=== PATIENT | female | born 1955 | race Caucasian/White ===

== ENCOUNTER 2021-04-01 09:27 | Emergency (ER) | payer MEDICARE, MEDICAID, SELFPAY ==
--- NOTE | ~2021-04-01 | US_ITS ---
EXAMINATION: US pelvic complete w TV DATE: 04/01/2021 10:26 INDICATION: Postmenopausal bleeding. TECHNIQUE: Multiple transabdominal and transvaginal sonographic images of the pelvis were obtained. COMPARISON: None. FINDINGS: TRANSABDOMINAL ULTRASOUND: There is no free fluid in the pelvis. TRANSVAGINAL ULTRASOUND: The uterus measures 6.0 x 2.9 x 4.2 cm. The endometrial complex measures 4 mm in thickness. The ovari es are not visualized. IMPRESSION: 1. Normal uterus. Reviewed, dictated and finalized at location A. IMPRESSION: 1. Normal uterus.
[2021-04-01 09:26] VITALS: BP 125/59; PULSE 68; RESP 19; TEMP 36.9; O2SAT 100
--- NOTE | 2021-04-01 09:48 | ED.FEMALEGU ---
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 Patient states she has had intermittent vaginal bleeding over the past year. She states she has never been evaluated for this, no history of pelvic ultrasound or work-up. She denies weight loss, abdominal pain or bloating. At times the bleeding is very light but over the past 2 weeks she has been passing heavy clots and using 3-4 pads per day. No brisk bleeding. No lightheadedness, dizziness, syncope or palpitations. No dark or tarry stool. Patient denies history of cancer in self. She denies night sweats. Related Data Allergies Allergy/AdvReac Type Severity Reaction Status Date / Time bacitracin Allergy Swelling Verified 04/01/21 09:34 [From Neosporin ([id number])] neomycin Allergy Swelling Verified 04/01/21 09:34 [From Neosporin ([id number])] polymyxin B Allergy Swelling Verified 04/01/21 09:34 [From Neosporin ([id number])] Review of Systems Review of Systems: Narrative: CONSTITUTIONAL: Denies fever, chills, or sweats. EYES: Denies visual changes, redness, or discharge. ENT: Denies rhinorrhea, congestion, sore throat, or otalgia. CARDIOVASCULAR: Denies chest pain, palpitations, or edema. RESPIRATORY: Denies cough or dyspnea. GASTROINTESTINAL: Denies abdominal pain, nausea, vomiting, or diarrhea. GENITOURINARY: Denies dysuria or hematuria. Reports vaginal bleeding. SKIN: Denies rash or itching. MUSCULOSKELETAL: Denies back pain, joint pain, or myalgia. NEUROLOGIC: Denies headache, numbness, or weakness. [facility] Social History Social History (Updated 04/01/21 @ 09:50 by Edwige Pringle MD) Smoking status: Current every day smoker Alcohol intake: never Substance use: never Living arrangements: assisted living Gender identity (if verbalized by the patient): Female Exam Narrative: Exam Narrative: GENERAL: Awake, alert, conversant HEAD: Normocephalic, atraumatic. EYES: PERRLA and EOMI. ENT: Nares clear, no rhinorrhea or epistaxis. Mucous membranes moist. NECK: Supple. CHEST: No respiratory distress, breathing even and non labored HEART: Regular rate, sinus rhythm ABDOMEN:Non distended, non tender : Cervix is closed. There is scant bleeding from the os, no large blood clots. No brisk bleeding. No cervical tenderness. No vesicles or lesions. No masses identified. EXTREMITIES: Normal range of motion. No edema. SKIN: Warm, dry, no rash. NEURO:No focal deficits. Alert and oriented x3 Course Vital Signs Vital signs: Vital Signs Temperature 36.9 C 04/01/21 09:26 Pulse Rate 68 04/01/21 09:26 Respiratory Rate 19 04/01/21 09:26 Blood Pressure 125/59 L 04/01/21 09:26 Pulse Oximetry 100 04/01/21 09:26 Temperature 36.9 C 04/01/21 09:26 Pulse Rate 74 04/01/21 12:09 Respiratory Rate 18 04/01/21 12:09 Blood Pressure 121/63 04/01/21 12:09 Pulse Oximetry 100 04/01/21 12:09 MDM - Female Genitourinary MDM Narrative Medical decision making narrative: Patient is presenting for evaluation of abnormal uterine bleeding. This has been longstanding for the patient. At the time of assessment, ABCs are intact and vital signs are stable. No significant pain on exam. Patient with evidence of scant bleeding without brisk bleeding or large blood clots. No evidence of infection. No urinary symptoms thus swabs were not obtained. Laboratory results are reassuring. Very mild anemia. No significant anemia that would require transfusion. Patient is not hemodynamically unstable she is not even symptomatic from her vaginal bleeding. Obtain a pelvic ultrasound to rule out any neoplastic pathology, patient
[2021-04-01 10:51] LABS: Basophils Absolute Auto 0.1 K/mm3 (0.0-0.1); Basophils Percent Auto 0.7 % (0.2-1.2); Eosinophils Absolute Auto 0.1 K/mm3 (0-0.3); Eosinophils Percent Auto 1.6 % (0-4.4); Hematocrit 35.5 % (37.0-47.0); Hemoglobin 11.3 g/dL (12.0-15.0); Immature Granulocyte Absolute 0.02 K/mm3 (0.00-0.031); Immature Granulocyte Percent A 0.3 % (0-0.5); Lymphocytes Absolute Auto 1.85 K/mm3 (0.9-3.2); Lymphocytes Percent Auto 26.7 % (18.3-44.2); Mean Corpuscular HGB Conc 31.8 g/dl (32-36); Mean Corpuscular Hemoglobin 29.5 pg (26-34); Mean Corpuscular Volume 92.7 fl (80-100); Mean Platelet Volume 9.4 fl (7.4-10.4); Monocytes Absolute Auto 0.9 K/mm3 (0.1-0.6); Monocytes Percent Auto 12.7 % (2.6-8.5); Platelet Count Result 243 k/mm3 (150-375); Red Blood Count 3.83 M/mm3 (4.2-5.4); Red Cell Distribution Width 15.7 % (11.5-14.5); White Blood Count 6.9 K/mm3 (4.5-10.0)
[2021-04-01 11:02] LABS: Anion Gap 7 mmol/L (8-16); Blood Urea Nitrogen 27 mg/dL (7-17); Calcium 9.1 mg/dL (8.4-10.2); Carbon Dioxide 25 mmol/L (22-30); Chloride 108 mmol/L (98-107); Estimated CRCL calculation 55 ml/min; Estimated Glomerular Filt Rate > 60; Glucose 93 mg/dL (65-105); Potassium 4.3 mmol/L (3.4-5.0); Sodium 140 mmol/L (137-145)
--- NOTE | 2021-04-01 11:07 | PC.NURSE ---
unable to provide urine sample, states went in u/s, gives consent for straight cath - ordered
[2021-04-01 11:15] LABS: INR 0.9; Prothrombin Time 12.6 Seconds (11.1-14.7)
[2021-04-01 12:03] LABS: Add Urine Microscopic? YES; Appearance Urine Clear (Clear); Bilirubin Urine Negative (Negative); Blood Urine Negative (Negative); Color Urine Straw (Yellow); Glucose Urine UA Negative (Negative); Ketones Urine Negative (Negative); Leukocyte Esterase Ur Negative LEU/UL (Negative); Nitrate Urine Negative (Negative); Protein Urine Negative (Negative); RBC Urine 0-2 /hpf (0-2); Specific Grav Ur 1.013 (1.001-1.035); Squamous Epithelial Cell Urine Rare /hpf (Few); Urobilinogen Urine Negative mg/dL (<2.0); WBC Urine 0-3 /hpf
[2021-04-01 12:09] VITALS: BP 121/63; PULSE 74; RESP 18; O2SAT 100
--- NOTE | 2021-04-01 13:50 | PC.NURSE ---
Called [facility] and gave report to Cathie GODDARD, will call back and let this RN know of ride avail to transport pt back to [place].
[2021-04-01 13:53] VITALS: BP 132/58; PULSE 89; RESP 15; O2SAT 98
== END 2021-04-01 13:56 ==
PROVIDERS: Emergency Provider Emergency Medicine; PCP Internal Medicine
DX: N93.9 Abnormal uterine and vaginal bleeding, unspecified (principal); F17.200 Nicotine dependence, unspecified, uncomplicated
CPT/HCPCS: 36415; 51701; 76830; 76856; 80048; 81001; 85025; 85610; 86850; 86900; 86901; 99284

== ENCOUNTER 2021-11-23 20:33 | Emergency (ER) | payer MEDICARE, MEDICAID, SELFPAY ==
--- NOTE | ~2021-11-23 | CT_ITS ---
EXAMINATION: CT hip LT wo con DATE: 11/24/2021 00:03 INDICATION: Left hip pain. Fall. TECHNIQUE: Computed tomography (CT) of the left hip was performed without intravenous contrast. Autom ated exposure control and iterative reconstruction technique were employed. The dose-length product w as 111.59 mGy-cm. COMPARISON: Pelvis and left hip radiographs 11/23/2021 FINDINGS: There is extensive erosions of left acetabulum and left femoral head. There is a T-type fra cture of left acetabulum. There is a large left hip joint effusion with partially visualized extensio n into the left psoas muscle. IMPRESSION: 1. Extensive erosions of left femoral head and left acetabulum with large left hip joint effusion ext ending into the iliopsoas muscle, consistent with septic arthritis versus inflammatory arthritis. 2. Pathologic T-type fracture of left acetabulum. Reviewed, dictated and finalized at location A. LAY DECORATOR IMPRESSION: 1. Extensive erosions of left femoral head and left acetabulum with large left hip joint effusion extending into the iliopsoas muscle, consistent with septic arthritis versus inflammatory arthritis. 2. Pathologic T-type fracture of left acetabulum.
--- NOTE | ~2021-11-23 | XR_ITS ---
EXAMINATION: XR hip LT 2V w AP pelvis DATE: 11/23/2021 21:36 INDICATION: Left hip pain. TECHNIQUE: An anteroposterior view of the pelvis and 2 views of left hip were obtained. COMPARISON: Pelvis and left hip radiographs 11/22/2015, left hip CT 11/23/2021 FINDINGS: There is internal fixation of proximal right femur with antegrade intramedullary savita and fe moral head/neck screws. There is mild right hip osteoarthritis. There are extensive erosions of left acetabulum and left femoral head. There is a T-type fracture of left acetabulum. There is moderate ander mbar spondylosis. IMPRESSION: 1. T-type fracture of left acetabulum. 2. Extensive erosions of left femoral head and left acetabulum, consistent with septic versus inflamm atory arthritis. 3. Mild right hip osteoarthritis. Reviewed, dictated and finalized at location A. ORK DIRECTOR IMPRESSION: 1. T-type fracture of left acetabulum. 2. Extensive erosions of left femoral head and left acetabulum, consistent with septic versus inflammatory arthritis. 3. Mild right hip osteoarthritis.
[2021-11-23 20:44] VITALS: BP 139/69; PULSE 94; RESP 14; TEMP 36.9; O2SAT 99
--- NOTE | 2021-11-23 22:22 | ED.LOWEXIN ---
HPI - Extremity Injury (Lower) General Chief Complaint: Extremity Injury, Lower <Awa Bowles MD - Last Filed: 11/23/21 23:54> Stated Complaint: Left hip pain w/ Fx <Awa Bowles MD - Last Filed: 11/23/21 23:54> Time Seen by Provider: 11/23/21 22:13 <Awa Bowles MD - Last Filed: 11/23/21 23:54> Source: patient and RN notes reviewed <Awa Bowles MD - Last Filed: 11/23/21 23:54> Mode of arrival: EMS <Awa Bowles MD - Last Filed: 11/23/21 23:54> Limitations: no limitations <Awa Bowles MD - Last Filed: 11/23/21 23:54> History of Present Illness HPI Narrative: Patient is 65 years old white female brought to the emergency room by ambulance because of left buttock pain after a fall 4 days ago. Patient tripped and fell, denies other injuries. Pain started getting worse 2 days ago. Patient did take [id number]-[id number] medication without improvement. Patient denies any fever, chills, nausea, vomiting, abdominal pain, back pain, shortness of breath or chest pain <Awa Bowles MD - Last Filed: 11/23/21 23:54> Related Data Allergies/Adverse Reactions: Allergies Allergy/AdvReac Type Severity Reaction Status Date / Time bacitracin Allergy Swelling Verified 04/01/21 09:34 [From Neosporin ([id number])] neomycin Allergy Swelling Verified 04/01/21 09:34 [From Neosporin ([id number])] polymyxin B Allergy Swelling Verified 04/01/21 09:34 [From Neosporin ([id number])] <Awa Bowles MD - Last Filed: 11/23/21 23:54> Review of Systems Review of Systems: CONSTITUTIONAL: Denies fever, chills, or sweats. EYES: Denies visual changes, redness, or discharge. ENT: Denies rhinorrhea, congestion, sore throat, or otalgia. CARDIOVASCULAR: Denies chest pain, palpitations, or edema. RESPIRATORY: Denies cough or dyspnea. GASTROINTESTINAL: Denies abdominal pain, nausea, vomiting, or diarrhea. GENITOURINARY: Denies dysuria or hematuria. SKIN: Denies rash or itching. MUSCULOSKELETAL: Denies back pain, joint pain, or myalgia. NEUROLOGIC: Denies headache, numbness, or weakness. PSYCHIATRIC: Denies anxiety or depression. <Awa Bowles MD - Last Filed: 11/23/21 23:54> PMFSH Social History Social History: Social History Smoking status: Current every day smoker Alcohol intake: never Substance use: never Gender identity (if verbalized by the patient): Female <Awa Bowles MD - Last Filed: 11/23/21 23:54> Exam Narrative: General appearance: Well-developed, well-nourished Skin: Normal color Head: Normocephalic, nontraumatic Eyes: Clear conjunctiva ENT: Oropharynx normal, ears normal, nose normal Neck: Supple, nontender Chest and respiratory: Airway patent, no respiratory distress, no accessory muscle use Heart: Regular rate/rhythm Abdomen: Soft, nontender, no organomegaly, quiet bowel sounds Vascular: Normal peripheral pulses, normal capillary refill. Musculoskeletal: Diffuse tenderness left buttock and left hip area, slight limited range of motion. No bruises, no deformity, no swelling or rash Neurologic: Alert and oriented ?3, MEDTRONICS TECHNICIAN is normal as tested, no gross motor deficit <Awa Bowles MD - Last Filed: 11/23/21 23:54> Course Course Emergency Course: Stable <Awa Bowles MD - Last Filed: 11/23/21 23:54> The imaging showed a acetabulum fracture with a disintegrated femoral head. The case was discussed with our local orthopedic surgeon who recommended speaking to [facility] the patient is seen [facility] before when the [facility] transfer center was contacted it was found out that the patient
[2021-11-23] MEDS: HYDROcodone/acetaminophen (*CRX) 5-325 MG TABLET 1 TAB PO (22:34)
[2021-11-23] MEDS: IBUPROFEN 600 MG TABLET PO (22:35)
--- NOTE | 2021-11-24 01:20 | PC.NURSE ---
Per EMS, pt called for them d/t pain in Left hip, s/p fall 3 days ago. Known left hip fx, but has not f/u c ortho. Was seen [facility] for problem and d/c home. Pt reports to this RN that she has not made her ortho f/u appt. as of this time, but will do so 1st thing on Thursday am. ED MD notified, and in t speak to pt. After that, ED MD reports that pt was instead seen for her RIGHT hip problems. ED MD currently on phone with doctor at [facility], attempting to find out what pt was seen for.
[2021-11-24 01:27] VITALS: BP 149/89; PULSE 90; RESP 18; TEMP 36.1; O2SAT 98
== END 2021-11-24 01:37 | disposition home or self-care (01) ==
PROVIDERS: Emergency Provider Emergency Medicine; PCP Internal Medicine
DX: S32.492A Other specified fracture of left acetabulum, initial encounter for closed fracture (principal); M16.11 Unilateral primary osteoarthritis, right hip; M85.852 Other specified disorders of bone density and structure, left thigh; F17.200 Nicotine dependence, unspecified, uncomplicated; W01.0XXA Fall on same level from slipping, tripping and stumbling without subsequent striking against object, initial encounter
CPT/HCPCS: 73502; 73700; 99284; A9270

== ENCOUNTER 2023-09-10 16:28 | Inpatient (IN) | payer MEDICARE, MEDICAID, SELFPAY ==
--- NOTE | ~2023-09-10 | XR_ITS ---
EXAMINATION: XR pelvis 1-2V DATE: 09/15/2023 12:37 INDICATION: Pelvis pain. TECHNIQUE: An anteroposterior view of the pelvis was obtained. COMPARISON: Pelvis radiograph 11/23/2021 FINDINGS: There is chronic dislocation of left hip with absence of the femoral head and neck. There i s chronic enlargement of the left acetabulum. There is an old healed fracture of left inferior pubic ramus. There is internal fixation of right femur with antegrade intramedullary savita and 2 femoral head /neck screws. No acute fracture. There is mild right hip osteoarthritis. There is moderate lumbar spo ndylosis. IMPRESSION: 1. Mild right hip osteoarthritis. 2. Chronic dislocation of left hip with absence of the left femoral head and neck. Reviewed, dictated and finalized at location E. LY COACH IMPRESSION: 1. Mild right hip osteoarthritis. 2. Chronic dislocation of left hip with absence of the left femoral head and ne ck.
--- NOTE | ~2023-09-10 | XR_ITS ---
EXAMINATION: XR foot LT min 3V DATE: 09/11/2023 10:10 INDICATION: Left heel fracture. TECHNIQUE: 3 views of left foot were obtained. COMPARISON: None. FINDINGS: There is a comminuted fracture of calcaneus with involvement of the subtalar joint and ante rior process. Boehler's angle is 22 degrees, which is mildly decreased. There is mild osteoarthritis of first metatarsophalangeal joint. Splint material obscures fine bone detail. IMPRESSION: 1. Comminuted fracture of calcaneus. Reviewed, dictated and finalized at location A. CHBOARD INSPECTOR
--- NOTE | ~2023-09-10 | XR_ITS ---
EXAMINATION: XR wrist LT 2V DATE: 09/15/2023 09:17 INDICATION: Distal left radius fracture. TECHNIQUE: 2 views of left wrist were obtained. COMPARISON: Left wrist radiographs 09/10/2023 FINDINGS: There is a comminuted fracture of distal radial metaphysis. The main distal fracture fragme nt demonstrates impaction, one cortical width dorsal displacement, and dorsal angulation. There is 26 degrees dorsal tilt of the distal articular surface. There is an avulsion fracture of the ulnar styl oid. There is severe osteoarthritis of first carpometacarpal joint. IMPRESSION: 1. Comminuted fracture of distal radius. 2. Avulsion fracture of the ulnar styloid. Reviewed, dictated and finalized at location E. E TRANSITIONAL
--- NOTE | ~2023-09-10 | XR_ITS ---
XR wrist LT min 3V DATE: 09/10/2023 17:43 INDICATION: Pain and swelling of left wrist after fall TECHNIQUE: 3 views COMPARISON: None FINDINGS: There is an approximately 2 mm dorsally displaced mildly comminuted distal radial fracture with mild apex anterior angulation and mild dorsal inclination of distal radial articular surface. Transverse fracture at the base of the ulnar styloid process with mild distal displacement. Radiocarpal alignment is preserved. Prominent osteophytic change at the first carpometacarpal joint. IMPRESSION: Distal radial metaphyseal and ulnar side process fractures Reviewed, dictated and finalized at location L. RAPHIC INFORMATION SYSTEM ANALYST
--- NOTE | ~2023-09-10 | XR_ITS ---
EXAMINATION: XR chest 1V portable DATE: 09/10/2023 20:20 INDICATION: Cough and COPD TECHNIQUE: frontal view of the chest was obtained. COMPARISON: Chest radiograph dated 04/12/2007 FINDINGS: The lungs remain clear with no focal airspace opacities, pulmonary edema, pleural effusion or pneumot horax. The cardiomediastinal silhouette is normal. Cholecystectomy clips in right upper quadrant. Mil d scattered degenerative skeletal changes. IMPRESSION: 1. No acute cardiopulmonary disease. Reviewed, dictated and finalized at location A. NOLOGY PROGRAM MANAGER
[2023-09-10 16:38] VITALS: BP 151/67; PULSE 82; RESP 16; TEMP 36.3; O2SAT 100
[2023-09-10 18:11] VITALS: BP 126/83; PULSE 80; RESP 16; O2SAT 96
--- NOTE | 2023-09-10 19:21 | PC.NURSE ---
This RN assumed care of patient. This RN took patient report from NITZA Mccollum.
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
--- NOTE | 2023-09-10 20:11 | ECG_ITS ---
Measurements Intervals [place] Rate: 74 P: 53 MI: 130 QRS: 10 QRSD: 105 T: 51 QT: 392 QTc: 436 Interpretive Statements SINUS RHYTHM VOLTAGE CRITERIA FOR LVH ANTEROSEPTAL INFARCT, AGE INDETERMINATE BASELINE ARTIFACT- I, II, III, AVR, AVL ABNORMAL ECG NO PREVIOUS ECG AVAILABLE FOR COMPARISON Electronically Signed On 09-11-2023 5:51:52 RESIDENTIAL TREATMENT COUNSELOR by [place] D.O.
--- NOTE | 2023-09-10 20:11 | PM.IMHP ---
H&P: HPI History of Present Illness Date/Time: 09/10/23 20:11 Chief Complaint: fall Narrative: This is a 67-year-old female with past medical history significant for tobacco dependence, patient recently had fracture to her left heel has been on a brace and using crutches at home however had a fall landing in her out stretch hand which caused a wrist fracture patient now presents due to being unable to care for self at home. Patient denies any loss of consciousness, fevers, rigors, chills, nausea, vomiting, shortness of breath, chest pain, dizziness, lightheadedness. Patient has been admitted for further evaluation management and treatment. XR wrist LT min 3V DATE: 09/10/2023 17:43 INDICATION: Pain and swelling of left wrist after fall? TECHNIQUE: 3 views? COMPARISON: None? FINDINGS: There is an approximately 2 mm dorsally displaced mildly comminuted distal radial fracture with mild apex anterior angulation and mild dorsal inclination of distal radial articular surface. Transverse fracture at the base of the ulnar styloid process with mild distal displacement. Radiocarpal alignment is preserved. Prominent osteophytic change at the first carpometacarpal joint.? IMPRESSION: Distal radial metaphyseal and ulnar side process fractures? EXAMINATION: XR chest 1V portable DATE: 09/10/2023 20:20 INDICATION: Cough and COPD TECHNIQUE: frontal view of the chest was obtained. COMPARISON: Chest radiograph dated 04/12/2007 FINDINGS: The lungs remain clear with no focal airspace opacities, pulmonary edema, pleural effusion or pneumothorax. The cardiomediastinal silhouette is normal. Cholecystectomy clips in right upper quadrant. Mild scattered degenerative skeletal changes. IMPRESSION: 1. No acute cardiopulmonary disease. Review of Systems Review of Systems: fall, unable to care for self at home Constitutional: Constitutional: Denies body ache(s), Denies chills, Denies fatigue, Denies fever(s), Denies malaise, Denies poor appetite and Denies weakness Eyes: Eyes: Denies change in vision ENT: Denies dysphagia, Denies vertigo, Denies dizziness and Denies odynophagia Cardiovascular: Cardiovascular: Denies chest pain, Denies irregular heart rhythm, Denies leg edema, Denies lightheadedness, Denies radiating jaw, neck or arm pain and Denies palpitations Respiratory: Respiratory: Denies chest congestion, Denies cough, Denies excessive phlegm production, Denies dyspnea and Denies wheezing Gastrointestinal: Gastrointestinal: Denies abdominal pain, Denies dyspepsia, Denies heartburn, Denies diarrhea, Denies nausea and Denies vomiting Genitourinary: Genitourinary: Denies dysuria Musculoskeletal: Musculoskeletal: Reports arthralgias (wrist ) Comments: L wrist Integumentary/Breasts: Skin/Breast: Denies rash Neurologic: Denies focal weakness and Denies Sensory deficit (Neuro) Psychiatric: Psychiatric: Reports no additional psychiatric complaints and Reports as per HPI Endocrine: Endocrine: Denies cold intolerance, Denies flushing, Denies heat intolerance, Denies polyphagia, Denies polydipsia and Denies palpitations Hematologic/Lymphatic: Hematologic/Lymphatic: Reports no additional hematologic/lymphatic complaints and Reports as per HPI Allergic/Immunologic: Allergic/Immunologic: Reports no additional allergic/immunologic complaints and Reports as per HPI PMFSH Social History Social History Smoking packs per day: 0.5 Smoking cigarettes per day: 10.0 Smoking status: Current every day smoker Tobacco type: cigarettes Alcohol intake: never Substance use: current Substance use type: marijuana Last use: 09/08/2023 Lack of Transportation: No Lack of Food: Never True Current Housing: I Have Housing Concerned About Future Housing: No Difficulty Paying Gas/Electric Bills: No Difficulty Paying for Meds: No Currently Unemployed: No Edu
[2023-09-10] MEDS: HYDROcodone/acetaminophen (*CRX) 5-325 MG TABLET 1 TAB PO (20:18)
--- NOTE | 2023-09-10 21:00 | PC.NURSE ---
This RN along with several RN's attempted to start an IV 10x on patient. Pt declined more attempts. This RN spoke with hospitalist Dr. Posey who stated pt could be admitted without IV access. This RN called [facility] for blood draw, who stated they are busy at the moment but could try when pt is admitted to floor.
[2023-09-10 21:33] VITALS: BP 163/65; PULSE 76; RESP 17; TEMP 36.6; O2SAT 100; BMI 19.5
--- NOTE | 2023-09-10 22:04 | ADMGEN ---
This patient, Mi Hassan, was admitted to Medical Room 245-. Patient/family oriented to hospital policies and general routines including ID bracelet, bed and alarms, visiting hours, pain management, procedures, bathroom and other care routines, personal items, smoking policy, room service/diet, and visiting hours. Information on how to activate the Rapid Response Team has been discussed. Patient/Family are encouraged to report perceived risks to care and to ask questions if they do not understand what they are told or what they should do.
--- NOTE | 2023-09-10 22:25 | PC.NURSE ---
PT STATES SINCE SHE LEFT THE [facility] 2022 SHE HAS NOT SEEN A DOCTOR AND HAS NOT TAKEN ANY MEDICINES
[2023-09-10 22:49] LABS: Basophils Absolute Auto 0.1 K/mm3 (0.0-0.1); Eosinophils Absolute Auto 0.2 K/mm3 (0-0.3); Eosinophils Percent Auto 2.6 % (0-4.4); Hematocrit 38.7 % (37.0-47.0); Immature Granulocyte Absolute 0.01 K/mm3 (0.00-0.031); Immature Granulocyte Percent A 0.2 % (0-0.5); Lymphocytes Absolute Auto 1.49 K/mm3 (0.9-3.2); Mean Corpuscular Hemoglobin 30.6 pg (26-34); Mean Corpuscular Volume 98.7 fl (80-100); Monocytes Absolute Auto 0.7 K/mm3 (0.1-0.6); Monocytes Percent Auto 10.5 % (2.6-8.5); Neutrophils Absolute Auto 3.9 K/mm3 (1.3-6.7); Neutrophils Percent Auto 61.7 % (45.5-73.1); Platelet Count Result 221 k/mm3 (150-375); Red Blood Count 3.92 M/mm3 (4.2-5.4); White Blood Count 6.2 K/mm3 (4.5-10.0)
[2023-09-10 22:59] LABS: Anion Gap 11 mmol/L (8-16); Blood Urea Nitrogen 17 mg/dL (7-17); Calcium 8.8 mg/dL (8.4-10.2); Carbon Dioxide 24 mmol/L (22-30); Chloride 102 mmol/L (98-107); Estimated CRCL calculation 72 ml/min; Estimated Glomerular Filt Rate > 60; Glucose 91 mg/dL (65-110); Potassium 3.3 mmol/L (3.4-5.0); Sodium 137 mmol/L (137-145)
[2023-09-11] MEDS: HYDROcodone/acetaminophen (*CRX) 5-325 MG TABLET 1 TAB PO ×6 (00:20→21:48)
[2023-09-11 04:21] VITALS: PULSE 76; RESP 17; O2SAT 100
[2023-09-11 05:20] VITALS: BP 158/52; PULSE 75; RESP 17; TEMP 36.8; O2SAT 96
--- NOTE | 2023-09-11 07:47 | PCPTNOTE ---
Pt will need ortho consult prior to therapy evaluations.
[2023-09-11 08:46] LABS: Hematocrit 38.9 % (37.0-47.0); Hemoglobin 12.3 g/dL (12.0-15.0); Mean Corpuscular HGB Conc 31.6 g/dl (32-36); Mean Corpuscular Hemoglobin 30.4 pg (26-34); Mean Corpuscular Volume 96.3 fl (80-100); Mean Platelet Volume 9.8 fl (7.4-10.4); Platelet Count Result 232 k/mm3 (150-375); Red Blood Count 4.04 M/mm3 (4.2-5.4)
[2023-09-11 09:07] LABS: Alanine Aminotransferase 16 U/L (6-35); Albumin Level 3.6 g/dL (3.5-5.1); Alkaline Phosphatase 107 U/L (38-126); Anion Gap 9 mmol/L (8-16); Aspartate Amino Transferase 24 U/L (14-36); Bilirubin,Total 0.5 mg/dL (0.2-1.3); Blood Urea Nitrogen 18 mg/dL (7-17); Calcium 8.6 mg/dL (8.4-10.2); Carbon Dioxide 27 mmol/L (22-30); Chloride 103 mmol/L (98-107); Estimated CRCL calculation 61 ml/min; Estimated Glomerular Filt Rate > 60; Glucose 128 mg/dL (65-110); Sodium 139 mmol/L (137-145)
[2023-09-11] MEDS: NICOTINE (*PBKC) 14 MG PATCH 1 PATCH TRANSDERM (09:26)
[2023-09-11] MEDS: polyethylene glycoL 3350 17 GM POWD.PACK PO (09:26)
[2023-09-11] MEDS: POTASSIUM CHLORIDE 20 MEQ ER TABLET PO (09:29)
--- NOTE | 2023-09-11 09:35 | PM.CNOR ---
Assessment and Plan Assessment and plan (1) Distal radial fracture: Qualifiers: Encounter type: initial encounter Fracture morphology: unspecified fracture morphology Fracture type: closed Laterality: left Qualified Code(s): S52.502A - Unspecified fracture of the lower end of left radius, initial encounter for closed fracture Code(s): S52.509A - Unspecified fracture of the lower end of unspecified radius, initial encounter for closed fracture Status: Acute Assessment and Plan: Radiographs of the left wrist reveal distal radial metaphyseal and ulnar side process fractures. The fracture type and injury as well as radiographs discussed with the patient and family. Operative and nonoperative treatment options reviewed. The patient is currently hesitant to proceed with surgical intervention with ORIF of the left wrist. Risk of nonunion, malunion or late displacement discussed. Stiffness, pain and possible dysfunction of the joint discussed. Fracture precautions and activity restrictions reviewed. The patient verbalizes understanding. She may benefit from ORIF of the left wrist given inability to bear weight on the LLE as well with the calcaneus fx. This would at least allow her to utilize the left wrist more effectively. Will defer decision to Dr. Hinkle pending further discussion with the patient. Continue splint in the interim. Ice, elevate. Pain control. Monitor [place] status. Dispo: SNF vs. Home. Patient is not currently agreeable to SNF at discharge. Appreciate CC consult. (2) Tobacco dependence: Code(s): F17.200 - Nicotine dependence, unspecified, uncomplicated Status: Acute (3) Calcaneal fracture: Qualifiers: Encounter type: initial encounter Calcaneus location: unspecified portion of calcaneus Fracture type: closed Fracture alignment: nondisplaced Laterality: left Qualified Code(s): S92.002A - Unspecified fracture of left calcaneus, initial encounter for closed fracture Code(s): S92.009A - Unspecified fracture of unspecified calcaneus, initial encounter for closed fracture Status: Acute Assessment and Plan: New radiographs of the left foot obtained to further evaluate calcaneus fracture. Radiographs of the left foot reveal a comminuted fracture of the calcaneus with involvement of the subtalar joint and anterior process. Boehler's angle is 22 degrees which is mildly decreased. Splint material in place. Reviewed radiographs with attending MD, Dr. Hinkle who recommends continued conservative treatment at this time. Recommended keeping current splint in place. Ice, elevate. Offload heel for skin protection. PT/OT consult. NWB of the LLE. Pain control. Given no current follow up plans with [facility], we will continue to follow her heel fracture as an outpatient. Patient would benefit from transitioning from crutches to a walker with forearm splint pending decision regarding her wrist. (4) No pertinent past surgical history: Code(s): Z78.9 - Other specified health status Status: Acute (5) Arthritis: Code(s): M19.90 - Unspecified osteoarthritis, unspecified site Status: Acute (6) Left ulnar fracture: Qualifiers: Encounter type: initial encounter Fracture alignment: displaced Fracture type: closed Ulna location: styloid process Qualified Code(s): S52.612A - Displaced fracture of left ulna styloid process, initial encounter for closed fracture Code(s): S52.202A - Unspecified fracture of shaft of left ulna, initial encounter for closed fracture Status: Acute (7) Hypertension: Code(s): I10 - Essential (primary) hypertension Status: Acute History of Present Illness HPI Consult date: 09/11/23 Consult reason: fracture Chief complaint: Radial and Ulner Fracture Narrative: 67 year old female presented to the ER after a fall. Per patient and review of medical records, the fall occurred two days pr
--- NOTE | 2023-09-11 10:33 | PM.IMPN ---
Progress Note: A&P Assessment and Plan (1) Distal radial fracture: Qualifiers: Encounter type: initial encounter Fracture morphology: unspecified fracture morphology Fracture type: closed Laterality: left Qualified Code(s): S52.502A - Unspecified fracture of the lower end of left radius, initial encounter for closed fracture Code(s): S52.509A - Unspecified fracture of the lower end of unspecified radius, initial encounter for closed fracture Status: Acute Assessment and Plan: X-ray with left distal radial metaphyseal and ulnar side process fractures. Orthopedic consulted. Analgesics p.r.n.. PT and OT per Orthopedic recommendations. (2) Left ulnar fracture: Qualifiers: Encounter type: initial encounter Fracture alignment: displaced Fracture type: closed Ulna location: styloid process Qualified Code(s): S52.612A - Displaced fracture of left ulna styloid process, initial encounter for closed fracture Code(s): S52.202A - Unspecified fracture of shaft of left ulna, initial encounter for closed fracture Status: Acute Assessment and Plan: As above (3) Closed fracture of left hip: Qualifiers: Encounter type: subsequent encounter Fracture healing: with nonunion Qualified Code(s): S72.002K - Fracture of unspecified part of neck of left femur, subsequent encounter for closed fracture with nonunion Code(s): S72.002A - Fracture of unspecified part of neck of left femur, initial encounter for closed fracture Status: Acute Assessment and Plan: Non operative management at this time. (4) Calcaneal fracture: Code(s): S92.009A - Unspecified fracture of unspecified calcaneus, initial encounter for closed fracture Status: Acute Assessment and Plan: Orthopedics consulted. (5) Hypertension: Code(s): I10 - Essential (primary) hypertension Status: Acute Assessment and Plan: Patient states that she used to live at [place] but no longer lives there due to being kicked out. Patient does not know any of her home medications. Will monitor her blood pressure. (6) Tobacco dependence: Code(s): F17.200 - Nicotine dependence, unspecified, uncomplicated Status: Acute Assessment and Plan: Nicotine patch Plan Patient states that she is crashing at a friend's house for right now. She does not want any placement at this time. Discussed with her that it would be in her best interest to get rehab due to the multiple fractures that she has. She does not care and wants to be discharged home. Will wait for further recommendations from Orthopedics as far as surgery goes. Subjective Date/time seen: 09/11/23 10:33 Interval history: Patient states that she is crashing at a friend's house for right now. She does not want any placement at this time. Discussed with her that it would be in her best interest to get rehab due to the multiple fractures that she has. She does not care and wants to be discharged home. Will wait for further recommendations from Orthopedics as far as surgery goes. she denies any pain at this time. She typically walks with a walker but has been on crutches since she broke her heel. She claims that she has fallen multiple times due to the inability to use crutches. Her story changes each time she is asked about her fractures. She has poor historian. Exam Narrative: GENERAL: Comfortable, no acute distress HENMT: moist mucous membranes EYES: EOM intact b/l NECK: no lymphadenopathy RESPIRATORY: clear to auscultation CARDIO: RRR GI: soft, nontender, bowel sounds present SKIN: no rashes EXTREMITIES: left foot and left arm splinting Objective Data Vital Signs Vital Signs: Vital Signs - 24 hr 09/10/23 16:38 09/10/23 18:11 09/10/23 21:33 Temperature 97.3 F L 97.9 F Pulse Rate 82 80 76 Respiratory Rate 16
--- NOTE | 2023-09-11 12:55 | PC.NURSE ---
Patient refused to obtain IV access after two attempts. Provider aware and okay with no IV access.
[2023-09-11 14:00] VITALS: BP 164/68; PULSE 73; RESP 13; TEMP 36.6; O2SAT 92
[2023-09-11] MEDS: POTASSIUM CHLORIDE 20 MEQ PACKET (FOR LIQUID) 60 MEQ PO (17:24)
[2023-09-11 19:31] LABS: Potassium 4.5 mmol/L (3.4-5.0)
[2023-09-11 19:39] VITALS: BP 157/68; PULSE 64; RESP 15; TEMP 36.9; O2SAT 99
--- NOTE | 2023-09-12 01:37 | PC.NURSE ---
Pt found using vape device in room, pt educated on hospital policy and device locked inside patient locker.
[2023-09-12] MEDS: HYDROcodone/acetaminophen (*CRX) 5-325 MG TABLET 1 TAB PO ×6 (01:54→23:24)
[2023-09-12 05:20] VITALS: BP 172/70; PULSE 69; RESP 19; TEMP 36.9; O2SAT 94
--- NOTE | 2023-09-12 05:22 | ECG_ITS ---
Measurements Intervals [place] Rate: 67 P: 138 CA: 129 QRS: 32 QRSD: 106 T: 68 QT: 408 QTc: 432 Interpretive Statements ECTOPIC ATRIAL RHYTHM LEFT VENTRICULAR HYPERTROPHY AND ST-T CHANGE CANNOT RULE OUT SEPTAL INFARCT, AGE INDETERMINATE PEAKED T WAVES- CONSIDER HYPERKALEMIA ABNORMAL ECG COMPARED TO ECG 09/10/2023 20:31:06 ECTOPIC ATRIAL RHYTHM NOW PRESENT PEAKED T WAVES NOW PRESENT Electronically Signed On 09-12-2023 7:43:38 GAS CUTTER by [place] D.O.
[2023-09-12] MEDS: NITROGLYCERIN SL 0.4 MG TABLET SUBLINGUAL (05:38)
[2023-09-12 05:54] LABS: Basophils Absolute Auto 0.1 K/mm3 (0.0-0.1); Basophils Percent Auto 1.2 % (0.2-1.2); Eosinophils Absolute Auto 0.2 K/mm3 (0-0.3); Eosinophils Percent Auto 3.3 % (0-4.4); Hematocrit 36.4 % (37.0-47.0); Hemoglobin 11.7 g/dL (12.0-15.0); Immature Granulocyte Absolute 0.01 K/mm3 (0.00-0.031); Immature Granulocyte Percent A 0.2 % (0-0.5); Lymphocytes Absolute Auto 1.66 K/mm3 (0.9-3.2); Lymphocytes Percent Auto 31.9 % (18.3-44.2); Mean Corpuscular HGB Conc 32.1 g/dl (32-36); Mean Corpuscular Hemoglobin 30.6 pg (26-34); Mean Corpuscular Volume 95.3 fl (80-100); Mean Platelet Volume 9.7 fl (7.4-10.4); Monocytes Absolute Auto 0.7 K/mm3 (0.1-0.6); Monocytes Percent Auto 13.2 % (2.6-8.5); Neutrophils Absolute Auto 2.6 K/mm3 (1.3-6.7); Neutrophils Percent Auto 50.2 % (45.5-73.1); Platelet Count Result 245 k/mm3 (150-375); Red Blood Count 3.82 M/mm3 (4.2-5.4); Red Cell Distribution Width 11.8 % (11.5-14.5); White Blood Count 5.2 K/mm3 (4.5-10.0)
[2023-09-12 06:06] VITALS: BP 139/86; PULSE 78; RESP 18; O2SAT 95
--- NOTE | 2023-09-12 06:08 | PC.NURSE ---
Dr Cook notified patient c/o chest pain described as something heavy on her chest , patient appears SOB and has had worsening HTN throughout the night. EKG ordered showing no change from admission, Nitro SL given which greatly improved BP to near normal. One time Troponin lab pending. Patient states no chest pain at roughly 15min after onset.
[2023-09-12 06:12] LABS: Alanine Aminotransferase 15 U/L (6-35); Albumin Level 3.6 g/dL (3.5-5.1); Alkaline Phosphatase 114 U/L (38-126); Anion Gap 4 mmol/L (8-16); Aspartate Amino Transferase 27 U/L (14-36); Bilirubin,Total 0.4 mg/dL (0.2-1.3); Blood Urea Nitrogen 16 mg/dL (7-17); Calcium 8.8 mg/dL (8.4-10.2); Carbon Dioxide 28 mmol/L (22-30); Chloride 105 mmol/L (98-107); Estimated CRCL calculation 61 ml/min; Estimated Glomerular Filt Rate > 60; Glucose 103 mg/dL (65-110); Potassium 4.2 mmol/L (3.4-5.0); Sodium 137 mmol/L (137-145)
[2023-09-12 06:24] LABS: Troponin I < 0.012 ng/mL (0.000-0.034)
[2023-09-12] MEDS: polyethylene glycoL 3350 17 GM POWD.PACK PO (10:22)
--- NOTE | 2023-09-12 12:04 | PM.IMPN ---
Progress Note: A&P Assessment and Plan (1) Distal radial fracture: Qualifiers: Encounter type: initial encounter Fracture morphology: unspecified fracture morphology Fracture type: closed Laterality: left Qualified Code(s): S52.502A - Unspecified fracture of the lower end of left radius, initial encounter for closed fracture Code(s): S52.509A - Unspecified fracture of the lower end of unspecified radius, initial encounter for closed fracture Status: Acute Assessment and Plan: X-ray with left distal radial metaphyseal and ulnar side process fractures. Appreciate orthopedic surgery consultation ORIF recommended. Initially was hesitant, but now agreeable to this option. Will await further evaluation by Dr. Hinkle. Continue supportive care with ice and elevation, analgesics as needed Continue left wrist splint PT and OT per Orthopedic recommendations. (2) Left ulnar fracture: Qualifiers: Encounter type: initial encounter Fracture alignment: displaced Fracture type: closed Ulna location: styloid process Qualified Code(s): S52.612A - Displaced fracture of left ulna styloid process, initial encounter for closed fracture Code(s): S52.202A - Unspecified fracture of shaft of left ulna, initial encounter for closed fracture Status: Acute Assessment and Plan: As above (3) Calcaneal fracture: Qualifiers: Encounter type: initial encounter Calcaneus location: unspecified portion of calcaneus Fracture type: closed Fracture alignment: nondisplaced Laterality: left Qualified Code(s): S92.002A - Unspecified fracture of left calcaneus, initial encounter for closed fracture Code(s): S92.009A - Unspecified fracture of unspecified calcaneus, initial encounter for closed fracture Status: Acute Assessment and Plan: X-ray demonstrates comminuted fracture of calcaneus, secondary to fall Evaluated by Orthopedic surgery, recommend conservative management Continue left foot splint Supportive care with ice, elevation, analgesics Patient to be nonweightbearing of left lower extremity per Orthopedic surgery (4) Hypertension: Code(s): I10 - Essential (primary) hypertension Status: Acute Assessment and Plan: Blood pressures slightly elevated yesterday, improved today 139/86 She is not on any antihypertensive Monitor blood pressure trends and consider addition of antihypertensive agent if BP remaining elevated (5) Tobacco dependence: Code(s): F17.200 - Nicotine dependence, unspecified, uncomplicated Status: Acute Assessment and Plan: Smokes 1/2 pack per day Continue nicotine patch during admission Will need counseling on smoking cessation (6) Chest pain: Code(s): R07.9 - Chest pain, unspecified Status: Acute Assessment and Plan: Episode of chest pain overnight Troponin negative EKG and clinical symptoms not concerning for a see a [place] to be related to anxiety Plan Appreciate care coordination consultation aas patient may require rehab given multiple fractures Subjective Date/time seen: 09/12/23 12:04 Interval history: Date of service: 09/12/2023 This be improved is doing well today. Set of chest pain last night which she believes was brought on by anxiety. She denies chest pain today. No palpitations or shortness of breath. Continues to endorse anxiety. Complains of 8/10 left left wrist pain and 6/10 left foot pain. Denies abdominal pain, nausea, vomiting, fever, or chills. She is tolerating her diet. States last bowel movement was yesterday. Denies urinary symptoms. Review of Systems Review of Systems: All systems reviewed & are unremarkable except as noted in HPI and below Exam Narrative: General: Thin, well-appearing 67-year-old female, sitting up in bed, comfortable, NARD Neuro: awake, alert and oriented x4, speech clear, no foca
[2023-09-12 14:00] VITALS: BP 141/72; PULSE 72; RESP 17; TEMP 36.8; O2SAT 94
[2023-09-12 20:14] VITALS: BP 155/64; PULSE 68; RESP 15; TEMP 36.4; O2SAT 99
[2023-09-13 03:05] VITALS: BP 152/72; PULSE 67; RESP 17; TEMP 36.4; O2SAT 98
[2023-09-13] MEDS: HYDROcodone/acetaminophen (*CRX) 5-325 MG TABLET 1 TAB PO ×4 (04:06→23:04)
[2023-09-13 06:13] LABS: Hematocrit 39.3 % (37.0-47.0); Hemoglobin 12.4 g/dL (12.0-15.0); Mean Corpuscular HGB Conc 31.6 g/dl (32-36); Mean Corpuscular Hemoglobin 30.4 pg (26-34); Mean Corpuscular Volume 96.3 fl (80-100); Mean Platelet Volume 9.5 fl (7.4-10.4); Platelet Count Result 276 k/mm3 (150-375); Red Blood Count 4.08 M/mm3 (4.2-5.4); Red Cell Distribution Width 11.9 % (11.5-14.5); White Blood Count 5.6 K/mm3 (4.5-10.0)
[2023-09-13 06:22] LABS: Anion Gap 7 mmol/L (8-16); Blood Urea Nitrogen 22 mg/dL (7-17); Calcium 9.1 mg/dL (8.4-10.2); Carbon Dioxide 28 mmol/L (22-30); Chloride 101 mmol/L (98-107); Estimated CRCL calculation 53 ml/min; Estimated Glomerular Filt Rate > 60; Glucose 110 mg/dL (65-110); Magnesium 1.7 mg/dL (1.6-2.3); Potassium 4.2 mmol/L (3.4-5.0); Sodium 136 mmol/L (137-145)
[2023-09-13] MEDS: polyethylene glycoL 3350 17 GM POWD.PACK PO (12:20)
[2023-09-13 14:00] VITALS: BP 148/70; PULSE 63; RESP 16; TEMP 36.4; O2SAT 97
--- NOTE | 2023-09-13 17:31 | PM.IMPN ---
Progress Note: A&P Assessment and Plan (1) Calcaneal fracture: Qualifiers: Encounter type: initial encounter Calcaneus location: unspecified portion of calcaneus Fracture type: closed Fracture alignment: nondisplaced Laterality: left Qualified Code(s): S92.002A - Unspecified fracture of left calcaneus, initial encounter for closed fracture Code(s): S92.009A - Unspecified fracture of unspecified calcaneus, initial encounter for closed fracture Status: Acute (2) Left ulnar fracture: Qualifiers: Encounter type: initial encounter Fracture alignment: displaced Fracture type: closed Ulna location: styloid process Qualified Code(s): S52.612A - Displaced fracture of left ulna styloid process, initial encounter for closed fracture Code(s): S52.202A - Unspecified fracture of shaft of left ulna, initial encounter for closed fracture Status: Acute (3) Tobacco dependence: Code(s): F17.200 - Nicotine dependence, unspecified, uncomplicated Status: Acute Plan pt is upset at being in the hospital for some time. however, it appears she has been on the fence and back about doing surgery. on 09/13 she reports she is amenable to surgery. call out to Dr. Rowland pending. holding lovenox pending surgical procedure smallest dose ativan prn for anxiety full code Subjective Date/time seen: 09/13/23 17:31 Interval history: NAOE. pt reports she is amenable to the wrist surgery. she is teary eyed, reporting anxiety. but otherwise without other somatic complaints Review of Systems Review of Systems: All systems reviewed & are unremarkable except as noted in HPI and below Exam Const: General: comfortable Eyes: Pupils: Equal, round and reactive pupils present Neck: Neck: supple Resp: Effort & Inspection: normal respiratory effort Auscultation: clear to auscultation bilaterally Cardio: Rate: regular rate Rhythm: regular rhythm Heart sounds: no gallops, no murmurs and no rubs GI: GI Palp: Yes Soft to palpation and No Tenderness to palpation present (GI) Extrem: General: no edema Objective Data Vital Signs Vital Signs: Vital Signs - 24 hr 09/12/23 20:14 09/12/23 20:00 09/13/23 03:05 Temperature 97.6 F 97.6 F Pulse Rate 68 67 Respiratory Rate 15 17 Blood Pressure 155/64 H 152/72 H Pulse Oximetry 99 98 Oxygen Delivery Room Air 09/13/23 08:29 09/13/23 14:00 Temperature 97.6 F Pulse Rate 63 Respiratory Rate 16 Blood Pressure 148/70 H Pulse Oximetry 97 Oxygen Delivery Room Air Intake/Output Intake/Output: Intake & Output 09/10/23 09/11/23 09/12/23 09/13/23 23:59 23:59 23:59 23:59 Intake Total 810 1600 982 Output Total 1450 800 350 Balance -640 800 632 Meds/Results Medications: Active Medications Generic Name Dose Route Start Last Admin Trade Name Freq PRN Reason Stop Dose Admin Acetaminophen 1,000 mg 09/11/23 00:11 Acetaminophen 500 Mg Tablet PO Q6H PRN Mild Pain (1-3) or Fever Hydrocodone Bitart/Acetaminophen 1 tab 09/10/23 20:24 09/13/23 12:18 Hydrocodone/Acetaminophen (*Crx) 5-325 Mg Tablet PO 1 tab Q4H PRN Administration Pain Rated 7-10 Al Hydrox/Mg Hydrox/Simethicone 30 ml 09/11/23 00:11 Mag Hydrox/Al Hydrox/Simeth 30 Ml Udc PO Q6H PRN Indigestion Nicotine 1 patch 09/11/23 09:00 09/13/23 08:31 Nicotine (*Pbkc) 14 Mg Patch TRANSDERM Not Given DAILY JASE Polyethylene Glycol 17 gm 09/11/23 00:11 09/13/23 12:20 Polyethylene Glycol 3350 17 Gm Powd.Pack PO 17 gm QAM PRN Administration Constipation Tramadol HCl 50 mg 09/11/23 00:12 Tramadol Hcl (*Crx) 50 Mg Tablet PO Q6H PRN Pain Rated 4-6 Radiology Results: ITS Impressions Wrist X-Ray 09/10/23 17:44 IMPRESSION: Distal radial metaphyseal and ulnar side process fractures Chest X-Ray 09/10/23 20:21 IMPRESSION: 1. No acute cardiopulmonary disease.
[2023-09-13 19:35] VITALS: BP 138/69; PULSE 86; RESP 18; TEMP 37.6; O2SAT 96
[2023-09-13] MEDS: LORazepam (*CRX) 0.5 MG TABLET 0.25 MG PO (21:27)
[2023-09-14 06:00] VITALS: BP 126/73; PULSE 85; RESP 20; TEMP 36.2; O2SAT 98
[2023-09-14] MEDS: HYDROcodone/acetaminophen (*CRX) 5-325 MG TABLET 1 TAB PO ×4 (06:01→19:50)
[2023-09-14] MEDS: LORazepam (*CRX) 0.5 MG TABLET 0.25 MG PO ×2 (06:03→19:51)
[2023-09-14 06:06] LABS: Hematocrit 42.3 % (37.0-47.0); Hemoglobin 13.4 g/dL (12.0-15.0); Mean Corpuscular HGB Conc 31.7 g/dl (32-36); Mean Corpuscular Hemoglobin 31.2 pg (26-34); Mean Corpuscular Volume 98.4 fl (80-100); Mean Platelet Volume 10.2 fl (7.4-10.4); Platelet Count Result 237 k/mm3 (150-375); White Blood Count 5.1 K/mm3 (4.5-10.0)
[2023-09-14 06:17] LABS: Anion Gap 11 mmol/L (8-16); Blood Urea Nitrogen 20 mg/dL (7-17); Calcium 9.2 mg/dL (8.4-10.2); Carbon Dioxide 23 mmol/L (22-30); Chloride 102 mmol/L (98-107); Estimated CRCL calculation 61 ml/min; Estimated Glomerular Filt Rate > 60; Glucose 114 mg/dL (65-110); Potassium 4.3 mmol/L (3.4-5.0); Sodium 136 mmol/L (137-145)
[2023-09-14 08:00] VITALS: PULSE 85; RESP 20; O2SAT 98
--- NOTE | 2023-09-14 08:36 | PCPTNOTE ---
Patient refused treatment this session. Patient did not give reason why, patient reported no to therapy and asked PT to come back later.
[2023-09-14 08:38] LABS: INR 0.9; Prothrombin Time 12.4 Seconds (11.1-14.7)
--- NOTE | 2023-09-14 09:08 | PM.PNORT ---
Progress Note: A&P Assessment and Plan (1) Distal radial fracture: Qualifiers: Encounter type: initial encounter Fracture morphology: unspecified fracture morphology Fracture type: closed Laterality: left Qualified Code(s): S52.502A - Unspecified fracture of the lower end of left radius, initial encounter for closed fracture Code(s): S52.509A - Unspecified fracture of the lower end of unspecified radius, initial encounter for closed fracture Status: Acute Assessment and Plan: Radiographs of the left wrist reveal distal radial metaphyseal and ulnar side process fractures. The fracture type and injury as well as radiographs discussed with the patient and family. Operative and nonoperative treatment options reviewed. The patient now wishes to proceed with surgical intervention. Dr. Hinkle notified. Will defer surgical intervention with ORIF of the left wrist and final decision to Dr. Hinkle. Continue splint in the interim. PT/OT. Ice, elevate. Pain control. Monitor [place] status. Dispo: SNF vs. Home. Patient is not currently agreeable to SNF at discharge. Appreciate CC consult. (2) Tobacco dependence: Code(s): F17.200 - Nicotine dependence, unspecified, uncomplicated Status: Acute (3) Calcaneal fracture: Qualifiers: Encounter type: initial encounter Calcaneus location: unspecified portion of calcaneus Fracture type: closed Fracture alignment: nondisplaced Laterality: left Qualified Code(s): S92.002A - Unspecified fracture of left calcaneus, initial encounter for closed fracture Code(s): S92.009A - Unspecified fracture of unspecified calcaneus, initial encounter for closed fracture Status: Acute Assessment and Plan: Radiographs of the left foot obtained to further evaluate calcaneus fracture. Radiographs of the left foot reveal a comminuted fracture of the calcaneus with involvement of the subtalar joint and anterior process. Boehler's angle is 22 degrees which is mildly decreased. Splint material in place. Reviewed radiographs with attending MD, Dr. Hinkle who recommends continued conservative treatment at this time. Recommended keeping current splint in place. Ice, elevate. Offload heel for skin protection. PT/OT consult. NWB of the LLE. Pain control. Given no current follow up plans with [facility], we will continue to follow her heel fracture as an outpatient. Patient would benefit from transitioning from crutches to a walker with forearm splint pending decision regarding her wrist. (4) No pertinent past surgical history: Code(s): Z78.9 - Other specified health status Status: Acute (5) Arthritis: Code(s): M19.90 - Unspecified osteoarthritis, unspecified site Status: Acute (6) Left ulnar fracture: Qualifiers: Encounter type: initial encounter Fracture alignment: displaced Fracture type: closed Ulna location: styloid process Qualified Code(s): S52.612A - Displaced fracture of left ulna styloid process, initial encounter for closed fracture Code(s): S52.202A - Unspecified fracture of shaft of left ulna, initial encounter for closed fracture Status: Acute (7) Hypertension: Code(s): I10 - Essential (primary) hypertension Status: Acute Plan Reviewed history, exam and previous radiographs as well as patients current desire to have surgical intervention with Dr. Hinkle. Subjective Subjective Date/Time Seen: 09/14/23 09:08 Interval history: Patient with a history of left wrist fracture and left heel fracture. Initially patient was hesitant regarding surgical intervention. She has been in a splint in the left wrist in working with PT OT in the interim. Today, the patient is desiring to proceed with surgical intervention. Review of Systems Constitutional: Constitutional: Reports no additional constitutional complaints, Denies excessive sweating, Denies fever(s) and Denies weight
--- NOTE | 2023-09-14 10:55 | PCOTNOTE ---
Patient refused to participate in therapy services this session. Patient verbalized, you people come in when people are trying to heal , I need rest and sleep to get better, leave me alone .
--- NOTE | 2023-09-14 13:06 | PM.IMPN ---
Progress Note: A&P Assessment and Plan (1) Chest pain: Code(s): R07.9 - Chest pain, unspecified Status: Acute (2) Calcaneal fracture: Qualifiers: Encounter type: initial encounter Calcaneus location: unspecified portion of calcaneus Fracture type: closed Fracture alignment: nondisplaced Laterality: left Qualified Code(s): S92.002A - Unspecified fracture of left calcaneus, initial encounter for closed fracture Code(s): S92.009A - Unspecified fracture of unspecified calcaneus, initial encounter for closed fracture Status: Acute (3) Tobacco dependence: Code(s): F17.200 - Nicotine dependence, unspecified, uncomplicated Status: Acute (4) Left ulnar fracture: Qualifiers: Encounter type: initial encounter Fracture alignment: displaced Fracture type: closed Ulna location: styloid process Qualified Code(s): S52.612A - Displaced fracture of left ulna styloid process, initial encounter for closed fracture Code(s): S52.202A - Unspecified fracture of shaft of left ulna, initial encounter for closed fracture Status: Acute Plan 67F w/ PMH tobacco abuse presented after a fall at home. She had a recent calcaneal fracture and was at home using crutches when she fell landing on her outstretched hand a now with ulna/radial fracture. She has been anxious about surgery but on 09/14 she is now amenable to repair tomorrow with Dr. Rowland. defer further mgmt to ortho. holding anticoagulation for surgery. SCD's for now full code Subjective Date/time seen: 09/14/23 13:06 Interval history: NAOE. patient is still amenable to wrist surgery. she denies complaints. wants to get out of here as soon as possible. Review of Systems Review of Systems: All systems reviewed & are unremarkable except as noted in HPI and below Exam Const: General: comfortable and no acute distress Eyes: Pupils: Equal, round and reactive pupils present Resp: Effort & Inspection: normal respiratory effort Auscultation: clear to auscultation bilaterally Cardio: Rate: regular rate Rhythm: regular rhythm Heart sounds: no gallops, no murmurs and no rubs Extrem: General: no edema Objective Data Vital Signs Vital Signs: Vital Signs - 24 hr 09/13/23 14:00 09/13/23 19:35 09/13/23 20:00 Temperature 97.6 F 99.6 F Pulse Rate 63 86 Respiratory Rate 16 18 Blood Pressure 148/70 H 138/69 Pulse Oximetry 97 96 Oxygen Delivery Room Air 09/14/23 06:00 09/14/23 08:00 Temperature 97.2 F L Pulse Rate 85 85 Respiratory Rate 20 20 Blood Pressure 126/73 Pulse Oximetry 98 98 Oxygen Delivery Room Air Intake/Output Intake/Output: Intake & Output 09/11/23 09/12/23 09/13/23 09/14/23 23:59 23:59 23:59 23:59 Intake Total 810 1600 1222 990 Output Total 1450 800 550 400 Balance -640 800 672 590 Meds/Results Medications: Active Medications Generic Name Dose Route Start Last Admin Trade Name Freq PRN Reason Stop Dose Admin Acetaminophen 1,000 mg 09/11/23 00:11 Acetaminophen 500 Mg Tablet PO Q6H PRN Mild Pain (1-3) or Fever Hydrocodone Bitart/Acetaminophen 1 tab 09/10/23 20:24 09/14/23 10:03 Hydrocodone/Acetaminophen (*Crx) 5-325 Mg Tablet PO 1 tab Q4H PRN Administration Pain Rated 7-10 Al Hydrox/Mg Hydrox/Simethicone 30 ml 09/11/23 00:11 Mag Hydrox/Al Hydrox/Simeth 30 Ml Udc PO Q6H PRN Indigestion Dextrose/Sodium Chloride 1,000 mls @ 50 mls/hr 09/14/23 23:55 Dextrose 5% Sodium Chloride 0.9% IV CONT .Q20H JASE Lorazepam 0.25 mg 09/13/23 17:32 09/14/23 06:03 Lorazepam (*Crx) 0.5 Mg Tablet PO 0.25 mg BID PRN Administration Anxiety Nicotine 1 patch 09/11/23 09:00 09/14/23 09:28 Nicotine (*Pbkc) 14 Mg Patch TRANSDERM Not Given DAILY JASE Polyethylene Glycol 17 gm 09/11/23 00:11 09/13/23 12:20 Polyethylene Glycol 3350 17 Gm Powd.Pack PO 17 gm QAM PRN Administration Constip
[2023-09-14 17:10] VITALS: BP 128/93; PULSE 77; RESP 18; TEMP 36.9; O2SAT 98
[2023-09-14 20:54] VITALS: BP 134/62; PULSE 81; RESP 20; TEMP 36.6; O2SAT 97
[2023-09-15] MEDS: HYDROcodone/acetaminophen (*CRX) 5-325 MG TABLET 1 TAB PO ×6 (00:09→22:14)
[2023-09-15 04:51] VITALS: BP 146/74; PULSE 89; RESP 18; TEMP 36.1; O2SAT 95
[2023-09-15 06:15] LABS: Hematocrit 40.3 % (37.0-47.0); Hemoglobin 12.9 g/dL (12.0-15.0); Mean Corpuscular Volume 96.9 fl (80-100); Mean Platelet Volume 9.4 fl (7.4-10.4); Platelet Count Result 315 k/mm3 (150-375); Red Blood Count 4.16 M/mm3 (4.2-5.4); Red Cell Distribution Width 12.2 % (11.5-14.5); White Blood Count 5.1 K/mm3 (4.5-10.0)
[2023-09-15 06:25] LABS: Anion Gap 9 mmol/L (8-16); Blood Urea Nitrogen 24 mg/dL (7-17); Calcium 9.2 mg/dL (8.4-10.2); Carbon Dioxide 26 mmol/L (22-30); Chloride 102 mmol/L (98-107); Estimated CRCL calculation 53 ml/min; Estimated Glomerular Filt Rate > 60; Glucose 108 mg/dL (65-110); Potassium 4.3 mmol/L (3.4-5.0); Sodium 137 mmol/L (137-145)
[2023-09-15] MEDS: DEXTROSE 5%/0.9% SOD CHL 1,000 ML 50 ML IV CONT (06:43)
[2023-09-15] MEDS: LORazepam (*CRX) 0.5 MG TABLET 0.25 MG PO ×2 (08:09→20:48)
[2023-09-15 09:25] VITALS: O2SAT 96
--- NOTE | 2023-09-15 13:28 | PM.PNORT ---
Progress Note: A&P Assessment and Plan (1) Calcaneal fracture: Qualifiers: Encounter type: initial encounter Calcaneus location: unspecified portion of calcaneus Fracture type: closed Fracture alignment: nondisplaced Laterality: left Qualified Code(s): S92.002A - Unspecified fracture of left calcaneus, initial encounter for closed fracture Code(s): S92.009A - Unspecified fracture of unspecified calcaneus, initial encounter for closed fracture Status: Acute Assessment and Plan: 1 WEEK POST FALL AND LEFT DISTAL RADIUS FRACTURE IN ACCEPTABLE ALIGNMENT AND CALCANEUS FRACTURE IN ACCEPTABLE ALIGNMENT. RECOMMEND NON OPERATIVE MANAGEMENT LEFT WRIST. SHE WILL CONTINUE WITH A PLATFORM WALKER FOR AT LEAST 6 WEEKS WITH LIMITED WEIGHT BEARING TO THE CALCANEUS. AWAITING PELVIS XRAY FOR NOW. ONCE SHE IS CLEARED FROM ORTHO STANDPOINT PENDING PELVIS XRAYS SHE MAY BE DISCHARGED TO A SNF. SHE WILL F/U WITH ORTHO IN 6 WEEKS. (2) Distal radial fracture: Qualifiers: Encounter type: initial encounter Fracture morphology: unspecified fracture morphology Fracture type: closed Laterality: left Qualified Code(s): S52.502A - Unspecified fracture of the lower end of left radius, initial encounter for closed fracture Code(s): S52.509A - Unspecified fracture of the lower end of unspecified radius, initial encounter for closed fracture Status: Acute Subjective Subjective Date/Time Seen: 09/15/23 13:28 Interval history: ANGIE IS DOING BETTER TODAY.. SHE HAS BEEN USING A PLATFORM WALKER FOR AMBULATION AND HER WRIST IS NOT TOO PAINFUL WHEN SHE IS WALKING AND SUPPORTING HER LEFT FOOT. SHE HAS NO HIP PAIN TODAY AND NONE ON EXAM. SHE HAS NO CALF PAIN. XRAYS OF THE WRIST WERE TAKEN TODAY SHOWING MAINTAINED ALIGNMENT OF FRACTURE FRAGMENTS DESPITE WEIGHT BEARING WITH A PLATFORM. Exam Extrem: Other: VSS AFEBRILE SPLINTS ARE INTACT. NV INTACT TO BILATERAL UPPER AND LOWER EXTREMITIES, HIPS NO PAIN WITH PROM OR AROM, B CALFS AND THIGH SOFT NON TENDER Objective Data Vital Signs Vital Signs: Vital Signs - 24 hr 09/14/23 17:10 09/14/23 20:54 09/15/23 04:51 Temperature 36.9 C 36.6 C 36.1 C L Pulse Rate 77 81 89 Respiratory Rate 18 20 18 Blood Pressure 128/93 H 134/62 146/74 H Pulse Oximetry 98 97 95 Oxygen Delivery 09/15/23 09:25 Temperature Pulse Rate Respiratory Rate Blood Pressure Pulse Oximetry 96 Oxygen Delivery Room Air Intake/Output Intake/Output: Intake & Output 09/12/23 09/13/23 09/14/23 09/15/23 23:59 23:59 23:59 23:59 Intake Total 1600 1222 2190 0 Output Total 800 550 800 Balance 789 727 4218 0 Meds/Results Medications: Active Medications Generic Name Dose Route Start Last Admin Trade Name Freq PRN Reason Stop Dose Admin Acetaminophen 1,000 mg 09/11/23 00:11 Acetaminophen 500 Mg Tablet PO Q6H PRN Mild Pain (1-3) or Fever Hydrocodone Bitart/Acetaminophen 1 tab 09/10/23 20:24 09/15/23 09:44 Hydrocodone/Acetaminophen (*Crx) 5-325 Mg Tablet PO 1 tab Q4H PRN Administration Pain Rated 7-10 Al Hydrox/Mg Hydrox/Simethicone 30 ml 09/11/23 00:11 Mag Hydrox/Al Hydrox/Simeth 30 Ml Udc PO Q6H PRN Indigestion Dextrose/Sodium Chloride 1,000 mls @ 50 mls/hr 09/14/23 23:55 09/15/23 06:43 Dextrose 5% Sodium Chloride 0.9% IV CONT 50 mls/hr .Q20H JASE Administration Lorazepam 0.25 mg 09/13/23 17:32 09/15/23 08:09 Lorazepam (*Crx) 0.5 Mg Tablet PO 0.25 mg BID PRN Administration Anxiety Nicotine 1 patch 09/11/23 09:00 09/15/23 08:10 Nicotine (*Pbkc) 14 Mg Patch TRANSDERM Not Given DAILY JASE Polyethylene Glycol 17 gm 09/11/23 00:11 09/13/23 12:20 Polyethylene Glycol 3350 17 Gm Powd.Pack PO 17 gm QAM PRN Administration Constipation Tramadol HCl 50 mg 09/11/23 00:12 Tramadol Hcl (*Crx) 50 Mg Tablet PO Q6H PRN Pain Rated 4-6 Radiology Re
--- NOTE | 2023-09-15 13:43 | PC.NURSE ---
Left a message with [facility] about needing to order a Cam Walker Boot for a patient. 09/15/2023 134Ryan LI, RN
--- NOTE | 2023-09-15 15:20 | PCOTNOTE ---
Attempted to see Patient this afternoon. Patient very upset, angry and states NO therapy, I'm leaving .
--- NOTE | 2023-09-15 15:30 | PC.NURSE ---
Vehicle Service Agent removed left splint as order, and velcro splint applied
--- NOTE | 2023-09-15 15:41 | PC.NURSE ---
[employer] had been notified of need for cam boot they will attempt to deliver today.
--- NOTE | 2023-09-15 17:29 | PC.NURSE ---
[employer] here removed splint and applied cam boot.
--- NOTE | 2023-09-15 19:03 | PM.IMPN ---
Progress Note: A&P Assessment and Plan (1) Calcaneal fracture: Qualifiers: Encounter type: initial encounter Calcaneus location: unspecified portion of calcaneus Fracture type: closed Fracture alignment: nondisplaced Laterality: left Qualified Code(s): S92.002A - Unspecified fracture of left calcaneus, initial encounter for closed fracture Code(s): S92.009A - Unspecified fracture of unspecified calcaneus, initial encounter for closed fracture Status: Acute (2) Tobacco dependence: Code(s): F17.200 - Nicotine dependence, unspecified, uncomplicated Status: Acute (3) Left ulnar fracture: Qualifiers: Encounter type: initial encounter Fracture alignment: displaced Fracture type: closed Ulna location: styloid process Qualified Code(s): S52.612A - Displaced fracture of left ulna styloid process, initial encounter for closed fracture Code(s): S52.202A - Unspecified fracture of shaft of left ulna, initial encounter for closed fracture Status: Acute (4) Personal history of noncompliance with medical treatment and regimen: Code(s): Z91.199 - Patient's noncompliance with other medical treatment and regimen due to unspecified reason Status: Acute (5) Arthritis: Code(s): M19.90 - Unspecified osteoarthritis, unspecified site Status: Acute (6) Hypertension: Code(s): I10 - Essential (primary) hypertension Status: Acute Plan 67F w/ PMH tobacco abuse presented after a fall at home. She had a recent calcaneal fracture and was at home using crutches when she fell landing on her outstretched hand a now with ulna/radial fracture. She has been anxious about surgery but on 09/14 she is now amenable to repair tomorrow with Dr. Rowland. defer further mgmt to ortho. holding anticoagulation for surgery. SCD's for now 09/15/2023: patient seen by Orthopedics who want to wait as patient is not sure about the left wrist surgery. Continue with the platform walker for ambulation. Continue with pain meds as needed. May be discharged in a.m. if she remains stable and cleared by Orthopedics. She wanted to leave AMA, but I talked to her that she would need platform walker for ambulation for her left foot. she agreed with staying overnight. Personal history of noncompliance with medical treatment and regimen: STRICTLY advised patient to be compliant with meds and medical recommendations. Advised patient to get established with a PCP upon discharge, take care of meds, diet and bring patient's life back on track. Dependence on nicotine from cigarettes: Tobacco abuse counseling: Patient smokes cigarettes on a chronic basis. Strictly advised patient to cut down on or quit smoking. Nicotine patch ordered. ~5 minutes spent on tobacco cessation counseling with the patient. Websites - http://smokefree.gov & http://www.[employer] ? Quitlines - 1-556-GMVM-NOW ( ) ? Smokefree Apps - [employer] ? Text Messages - [employer] ([place] the [place]IT [place] [id number]) ? Patient seen and examined at bedside during my morning rounds ? Collaborated with patient's nurse at the bedside in detail and addressed all concerns ? Labs, electrolytes, radiology, investigations and test results reviewed ? Consult/Nursing/Ancilliary notes on the chart reviewed and appreciated ? Spoke with patient/family at the bedside and answered all the questions that they had Repeat labs in a.m. Electrolyte replacement as per protocol. Patient will be monitored very closely on the floor. Further recommendations as per the hospital course. Time Spent With Patient Time with patient: Greater than 35 minutes Subjective Date/time seen: 09/15/23 19:03 Interval history: Patient is going back and forth regarding her decision regarding left wrist surgery. She was scheduled for 3:00 p.m. today, but spoke with the Orthopedics who want to wait and see and may be follow as an outpatient. Await
[2023-09-15 20:04] VITALS: BP 144/58; PULSE 74; RESP 20; TEMP 37; O2SAT 93
[2023-09-15] MEDS: traMADol HCL (*CRX) 50 MG TABLET PO (20:53)
[2023-09-16] MEDS: HYDROcodone/acetaminophen (*CRX) 5-325 MG TABLET 1 TAB PO ×3 (02:04→12:00)
[2023-09-16] MEDS: traMADol HCL (*CRX) 50 MG TABLET PO (05:08)
[2023-09-16 05:46] VITALS: BP 131/61; PULSE 66; RESP 20; TEMP 36.6; O2SAT 95
[2023-09-16 06:18] LABS: Hemoglobin 11.7 g/dL (12.0-15.0); Mean Corpuscular HGB Conc 31.6 g/dl (32-36); Mean Corpuscular Hemoglobin 30.7 pg (26-34); Mean Corpuscular Volume 97.1 fl (80-100); Mean Platelet Volume 9.6 fl (7.4-10.4); Platelet Count Result 309 k/mm3 (150-375); Red Blood Count 3.81 M/mm3 (4.2-5.4); Red Cell Distribution Width 12.3 % (11.5-14.5); White Blood Count 4.9 K/mm3 (4.5-10.0)
[2023-09-16 06:28] LABS: Anion Gap 8 mmol/L (8-16); Blood Urea Nitrogen 23 mg/dL (7-17); Calcium 8.8 mg/dL (8.4-10.2); Carbon Dioxide 26 mmol/L (22-30); Chloride 103 mmol/L (98-107); Estimated CRCL calculation 53 ml/min; Estimated Glomerular Filt Rate > 60; Glucose 99 mg/dL (65-110); Magnesium 1.9 mg/dL (1.6-2.3); Phosphorus 3.8 mg/dL (2.5-4.5); Potassium 4.1 mmol/L (3.4-5.0); Sodium 137 mmol/L (137-145)
[2023-09-16] MEDS: LORazepam (*CRX) 0.5 MG TABLET 0.25 MG PO (08:04)
[2023-09-16] MEDS: NICOTINE (*PBKC) 14 MG PATCH 1 PATCH TRANSDERM (08:05)
[2023-09-16 08:14] VITALS: O2SAT 96
[2023-09-16 12:41] LABS: SARS-CoV-2 RNA PCR Negative (Negative)
--- NOTE | 2023-09-16 13:43 | PM.DS ---
DS: Admitting Diagnosis Discharge Date 09/16/23 Admitting Diagnosis fall DS: Discharge Diagnosis Discharge Diagnosis (1) Calcaneal fracture: Qualifiers: Calcaneus location: unspecified portion of calcaneus Encounter type: initial encounter Fracture alignment: nondisplaced Fracture type: closed Laterality: left Qualified Code(s): S92.002A - Unspecified fracture of left calcaneus, initial encounter for closed fracture Code(s): S92.009A - Unspecified fracture of unspecified calcaneus, initial encounter for closed fracture Status: Acute Assessment and Plan: Continue with pain meds as needed. (2) Tobacco dependence: Code(s): F17.200 - Nicotine dependence, unspecified, uncomplicated Status: Acute Assessment and Plan: smoking cessation discussed (3) Left ulnar fracture: Qualifiers: Encounter type: initial encounter Fracture alignment: displaced Fracture type: closed Ulna location: styloid process Qualified Code(s): S52.612A - Displaced fracture of left ulna styloid process, initial encounter for closed fracture Code(s): S52.202A - Unspecified fracture of shaft of left ulna, initial encounter for closed fracture Status: Acute Assessment and Plan: Continue with the platform walker for ambulation. Continue with pain meds as needed. ice/elevation follow up with ortho in 6 weeks placement in SNF for continued rehab (4) Personal history of noncompliance with medical treatment and regimen: Code(s): Z91.199 - Patient's noncompliance with other medical treatment and regimen due to unspecified reason Status: Chronic Assessment and Plan: Reinforced to patient to be compliant with medical recommendations. Advised patient to get established with a PCP upon discharge, take care of meds, diet and smoking cessation DS: Summary Hospital Course Hospital Course: Patient is 67 YO Female w/ PMH tobacco abuse, HTN, poor compliance presented after a fall at home. She has been off and on refusing placement to a SNF. She had a recent calcaneal fracture and was at home using crutches when she fell landing on her outstretched hand, which resulted in ulna/radial fracture. Dr. Rowland is recommending conservative management without surgery at this time. Hip imaging reviewed by ortho and stable for conservative management as well. Patient has agreed to go to rehab/SNF facility after threatening to leave AMA last night. Her pain is controlled with PRN pain medication. No home medications to resume. Stable for d/c to placement today. Status at Discharge Functional status at discharge: uses cane/walker Overall status at discharge: patient is not back to baseline Exam Narrative: General: Thin, ill-appearing 67-year-old female, sitting up in bed, comfortable. Neuro: A&O x4, speech clear, no focal neuro deficits noted HEENMT: normocephalic, atraumatic, EOMI, sclerae anicteric, moist oral mucosa Respiratory: clear to auscultation bilaterally, nonlabored breathing Cardio: RRR with S1-S2 Abdomen: nondistended, normoactive bowel sounds, soft, nontender to palpation Extremities: left wrist in splint, able to wiggle fingers bilaterally, left foot in splint wiggle toes bilaterally. Cap refill 2+. Skin: no rashes or lesions, warm and dry Psych: patient with the anxiety and flight of ideas, nonsuicidal DS: Data Data Completed and Pending Labs on day of discharge: Labs from last 24 hours 09/16/23 09/16/23 11:56 05:45 WBC 4.9 RBC 3.81 L Hgb 11.7 L Hct 37.0 MCV 97.1 MCH 30.7 MCHC 31.6 L RDW 12.3 Plt Count 309 MPV 9.6 Sodium 137 Potassium 4.1 Chloride 103 Carbon Dioxide 26 Anion Gap 8 BUN 23 H Creatinine 0.70 Estim Creat Clear Calc 53 Estimated GFR > 60 Glucose 99 Calcium 8.8 Phosphorus 3.8 Magnesium 1.9 SARS-CoV-2 RNA (RT-PCR) Negative Discharge Plan Discharge Attending
== END 2023-09-16 13:20 | DRG 563 ==
LOC: ANHED 20:24 → ANH2MED 21:06
PROVIDERS: Family Medicine; General Practice; Internal Medicine Critical Care Medicine; Physician Assistant; Admitting Provider Internal Medicine; Emergency Provider Physician Assistant; PCP Internal Medicine Infectious Disease; Visit Provider Nurse Practitioner
DX: S52.502A Unspecified fracture of the lower end of left radius, initial encounter for closed fracture (principal); S52.612A Displaced fracture of left ulna styloid process, initial encounter for closed fracture; I10 Essential (primary) hypertension; R07.9 Chest pain, unspecified; F17.210 Nicotine dependence, cigarettes, uncomplicated; F12.90 Cannabis use, unspecified, uncomplicated; W19.XXXA Unspecified fall, initial encounter; Z11.52 Encounter for screening for COVID-19; S92.002D Unspecified fracture of left calcaneus, subsequent encounter for fracture with routine healing; V09.9XXD Pedestrian injured in unspecified transport accident, subsequent encounter; Z91.199 Patient's noncompliance with other medical treatment and regimen due to unspecified reason
CPT/HCPCS: 29125; 36415; 71045; 72170; 73100; 73110; 73630; 80048; 80053; 83735; 84100; 84132; 84484; 85025; 85027; 85610; 87635; 93005; 97110; 97116; 97161; 97165; 97530; 97535; 99285; A4565; A9270; G0378; J7042

== ENCOUNTER 2024-01-16 14:01 | Emergency (ER) | payer MEDICARE, SELFPAY ==
--- NOTE | ~2024-01-16 | XR_ITS ---
EXAMINATION: XR chest 1V portable Exam Date/Time: 01/16/2024 16:55 CDT HISTORY: Pneumonia Comparison: 09/10/2023. RESULT: Lines, tubes, and devices: None. Lungs and pleura: Senescent change, otherwise clear. Cardiomediastinal silhouette: Stable. Other: No acute osseous or upper abdominal finding. IMPRESSION: No acute cardiopulmonary process. Reviewed, dictated and finalized at location K.
[2024-01-16 14:10] VITALS: BP 126/77; PULSE 82; RESP 18; TEMP 36.7; O2SAT 100
[2024-01-16 15:51] VITALS: PULSE 78; RESP 29; O2SAT 100
[2024-01-16 16:02] VITALS: PULSE 83
[2024-01-16 16:49] LABS: Bacteria Urine None Seen /hpf; Non Pathogenic Casts 0-2; RBC Urine 0-2 /hpf (0-2); Squamous Epithelial Cell Urine None Seen /hpf (Few); WBC Urine 0-5 /hpf (0-3)
[2024-01-16 16:52] LABS: Appearance Urine Clear (Clear); Bilirubin Urine Negative (Negative); Blood Urine Negative (Negative); Color Urine Yellow (Yellow); Glucose Urine UA Negative (Negative); Ketones Urine Negative (Negative); Nitrate Urine Negative (Negative); Protein Urine Negative (Negative); Specific Grav Ur 1.015 (1.001-1.035)
[2024-01-16 16:53] LABS: Leukocyte Esterase Ur Trace LEU/UL (Negative); Urobilinogen Urine 0.2 mg/dL (<2.0)
[2024-01-16 17:13] LABS: Basophils Absolute Auto 0.1 K/mm3 (0.0-0.1); Basophils Percent Auto 0.5 % (0.2-1.2); Eosinophils Absolute Auto 0.3 K/mm3 (0-0.3); Eosinophils Percent Auto 2.9 % (0-4.4); Hematocrit 41.3 % (37.0-47.0); Hemoglobin 13.6 g/dL (12.0-15.0); Immature Granulocyte Percent A 2.2 % (0-0.5); Lymphocytes Absolute Auto 2.35 K/mm3 (0.9-3.2); Lymphocytes Percent Auto 25.4 % (18.3-44.2); Mean Corpuscular HGB Conc 32.9 g/dl (32-36); Mean Corpuscular Hemoglobin 31.1 pg (26-34); Mean Corpuscular Volume 94.3 fl (80-100); Mean Platelet Volume 10.1 fl (7.4-10.4); Monocytes Absolute Auto 0.9 K/mm3 (0.1-0.6); Monocytes Percent Auto 9.8 % (2.6-8.5); Neutrophils Absolute Auto 5.5 K/mm3 (1.3-6.7); Neutrophils Percent Auto 59.2 % (45.5-73.1); Platelet Count Result 339 k/mm3 (150-375); Red Blood Count 4.38 M/mm3 (4.2-5.4); Red Cell Distribution Width 12.9 % (11.5-14.5); White Blood Count 9.3 K/mm3 (4.5-10.0)
[2024-01-16 17:29] LABS: Add Urine Microscopic? YES
--- NOTE | 2024-01-16 18:03 | ED.GENADULT ---
HPI - General Adult General Chief complaint: Weakness Stated complaint: generalized weakness Time Seen by Provider: 01/16/24 15:45 Source: patient Mode of arrival: ambulatory Limitations: no limitations History of Present Illness HPI narrative: 68-year-old with a history of COPD presents to the ER with a complaint of generalized weakness. Patient states that she was discharged from [facility] ago for pneumonia. Patient states she feels weak all over. She denies any chest pain, shortness of breath. No history of nausea or vomiting or abdominal pain. She also states that she has aortic aneurysm. Onset (ago): day(s) (1) Severity: mild Related Data Home Medications Medication Instructions Recorded Confirmed No Home Medications 01/16/24 01/16/24 Allergies Allergy/AdvReac Type Severity Reaction Status Date / Time bacitracin Allergy Swelling Verified 01/16/24 16:04 [From Neosporin ([id number])] neomycin Allergy Swelling Verified 01/16/24 16:04 [From Neosporin ([id number])] polymyxin B Allergy Swelling Verified 01/16/24 16:04 [From Neosporin ([id number])] Review of Systems Review of Systems: All systems reviewed & are unremarkable except as noted in HPI and below Constitutional: Constitutional: Reports as per HPI Eyes: Eyes: Reports no additional eye complaints ENT: Reports system reviewed and no additional complaints, except as documented Cardiovascular: Cardiovascular: Reports no additional cardiovascular complaints Respiratory: Respiratory: Reports no additional respiratory complaints Gastrointestinal: Gastrointestinal: Reports no additional gastrointestinal complaints Genitourinary: Genitourinary: Reports no additional female genitourinary complaints Musculoskeletal: Musculoskeletal: Reports no additional musculoskeletal complaints Integumentary/Breasts: Skin/Breast: Reports system reviewed and no additional complaints, except as docu Neurologic: Reports system reviewed and no additional complaints, except as documented Endocrine: Endocrine: Reports no additional endocrine complaints [facility] Social History Social History Smoking packs per day: 0.5 Smoking cigarettes per day: 10.0 Smoking status: Current every day smoker Tobacco type: cigarettes Alcohol intake: never Substance use: current Substance use type: marijuana Last use: 09/08/2023 Lack of Transportation: No Lack of Food: Never True Current Housing: I Have Housing Concerned About Future Housing: No Difficulty Paying Gas/Electric Bills: No Difficulty Paying for Meds: No Currently Unemployed: No Education: High School Diploma/GED Difficulty w/ Childcare or Family Care: No Living arrangements: assisted living Gender identity (if verbalized by the patient): Female Spiritual care concerns: No Exam Narrative: GENERAL: Thin and frail , in no acute distress. HEAD: Normocephalic, atraumatic. EYES: PERRLA and EOMI. ENT: Nares clear, no rhinorrhea or epistaxis. Mucous membranes moist. NECK: Supple. CHEST: Clear to auscultation. No respiratory distress. HEART: Regular rate and rhythm. No murmur heard. Normal peripheral pulses. ABDOMEN: Soft, nontender, nondistended, normal active bowel sounds. EXTREMITIES: Normal range of motion. No edema. SKIN: Warm, dry, no rash. NEURO: No focal deficits. Alert and oriented x3. PSYCH: Normal mood and affect. Course Course Emergency Course: Notified patient about her lab work, EKG and chest x-ray findings. Advised him to continue home medication, follow with the primary doctor Vital Signs Vital signs: Vital Signs Temperature 36.7 C 01/16/24 14:10 Pulse Rate 82 01/16/24 14:10 Respiratory Rate 18 01/16/24 14:10 Blood Pressure 126/77 01/16/24 14:10 Pulse Oximetry 100 01/16/24 14:10 Oxygen Delivery Room Air
[2024-01-16 18:04] LABS: Troponin I < 0.012 ng/mL (0.000-0.034)
== END 2024-01-16 19:03 | disposition home or self-care (01) ==
PROVIDERS: Emergency Provider Family Medicine; PCP Internal Medicine Infectious Disease
DX: R53.1 Weakness (principal); J44.9 Chronic obstructive pulmonary disease, unspecified; F17.210 Nicotine dependence, cigarettes, uncomplicated; Z87.01 Personal history of pneumonia (recurrent)
CPT/HCPCS: 36415; 71045; 81001; 84484; 85025; 99284